=== PATIENT | female | born 1965 | race Caucasian/White ===

== ENCOUNTER 2020-02-10 11:09 | Emergency (ER) | payer OTHER, SELFPAY ==
--- NOTE | ~2020-02-10 | XR_ITS ---
EXAMINATION: [id number] DATE: 02/10/2020 11:49 INDICATION: Low anterior chest pain. TECHNIQUE: A frontal view of the chest and 3 views of the left ribs were obtained. COMPARISON: Chest 2 views 03/22/2013 FINDINGS: The chest demonstrates clear lungs without pneumonia, pleural effusion, or pneumothorax. Th e heart size is normal. IMPRESSION: 1. No rib fracture. Reviewed, dictated and finalized at location A. IMPRESSION: 1. No rib fracture.
[2020-02-10 11:27] VITALS: BP 121/73; PULSE 89; RESP 16; TEMP 36.4; O2SAT 99
--- NOTE | 2020-02-10 11:27 | ED.ABDPAIN ---
HPI - Abdominal Pain General Chief Complaint: Unspecified Stated Complaint: pain left side mid section Time Seen by Provider: 02/10/20 11:30 Source: patient and RN notes reviewed Mode of arrival: ambulatory Limitations: no limitations History of Present Illness HPI narrative: 54-year-old female presents with concern for left lateral chest/rib pain. Reports pain started yesterday. Reports the day before the pain began she was doing a lot of lifting overhead. Reports while she was lifting she felt a sharp pain on her left side, however went away. She reports she is a smoker, has been coughing frequently. She denies shortness of breath, fever, malaise, chills, sweats, rhinorrhea, nasal congestion. Denies bruising, redness. Reports she is been taking Aleve and using icy hot. Patient reports pain is reproducible, worse when coughing movements. Reports when she raises her arms high above her head pain exacerbates MD elicited complaint: other (Left rib pain) Related Data Home Medications Medication Instructions Recorded Confirmed ergocalciferol (vitamin D2) 1,250 mcg PO WEEKLY 05/24/19 02/10/20 [Vitamin D2] insulin glargine [Basaglar KwikPen 75 unit SUBCUT DAILY 05/24/19 02/10/20 U-100 Insulin] omeprazole 20 mg PO BID 05/24/19 02/10/20 pravastatin 20 mg PO DAILY 05/24/19 02/10/20 sulindac 150 mg PO BID 05/24/19 02/10/20 tizanidine 2 mg PO TID PRN 05/24/19 02/10/20 ursodiol 300 mg PO BID 05/24/19 02/10/20 Allergies Allergy/AdvReac Type Severity Reaction Status Date / Time levofloxacin Allergy Unknown RASH Verified 02/10/20 11:35 Review of Systems Review of Systems: Narrative: CONSTITUTIONAL: Denies malaise, chills, sweats, or fever. ENT: Denies rhinorrhea, congestion, sinus pain, otalgia or sore throat. CARDIOVASCULAR: Denies chest pain, palpitations, or edema. RESPIRATORY: Reports cough. Denies dyspnea. GASTROINTESTINAL: Denies abdominal pain, nausea, vomiting, diarrhea GENITOURINARY: Denies dysuria or hematuria. SKIN: Denies bruising, rash MUSCULOSKELETAL: Reports left lateral rib/chest wall pain near ribs 8, 9, 10 laterally NEUROLOGIC: Denies numbness, weakness All systems reviewed & are unremarkable except as noted in HPI and below PMFSH Social History Social History Social History: used to smoke1-2pack; now is cutting down to about 8/day Smoking status: Current every day smoker Comments At time of signature, agree with nursing past medical, surgical, social and family history. There is no relevant family history pertinent to the presenting complaint Exam Narrative: Exam Narrative: GENERAL: Well-appearing, well-nourished, and in no acute distress. HEAD: Normocephalic EYES: PERRLA, conjunctivae clear ENT: Mucous membranes moist. NECK: Supple. CHEST: No respiratory distress. Clear to auscultation. No bony deformities, no asymmetry. Speaks in full sentences. HEART: Regular rate and rhythm. No murmur heard. ABDOMEN: Soft, nontender, nondistended, normal active bowel sounds, no palpable masses. EXTREMITIES: Grossly normal range of motion. SKIN: Warm, dry, no rash. No erythema, ecchymosis, edema noted to the left lateral chest, mild tenderness to palpation noted 7, 8, 9 NEURO: Alert and oriented x3. PSYCH: Normal mood and affect Course Course Emergency Course: Patient is aware of diagnosis, understands and agrees to treatment plan. Anticipatory guidance given. Patient agrees to follow-up as directed and is aware of reasons to seek care at the emergency department. Portions of this record may have been created with voice recognition software Vital Signs Vital signs: Vital Signs Temperature 97.5 F L 02/10/20 11:27 Pulse Rate 89 02/10/20 11:27 Respiratory Rate 16 02/10/20 11:27 Blood Pressure 121/73 02/10/20 11:27 Pulse Oximetry 99 02/10/20 11:27 Temperature 97.5 F L 02/10/20 11:27 Pulse Rate 89 02/10/20 11:27 R
== END 2020-02-10 12:13 | disposition home or self-care (01) ==
PROVIDERS: Emergency Provider Nurse Practitioner; PCP Internal Medicine
DX: R07.89 Other chest pain (principal); F17.290 Nicotine dependence, other tobacco product, uncomplicated; E11.42 Type 2 diabetes mellitus with diabetic polyneuropathy; Z79.4 Long term (current) use of insulin
CPT/HCPCS: 71101; 99213; G0463

== ENCOUNTER 2020-08-02 11:44 | Emergency (ER) | payer OTHER, SELFPAY ==
--- NOTE | ~2020-08-02 | XR_ITS ---
EXAMINATION: XR chest 2V DATE: 08/02/2020 12:38 INDICATION: Cough. TECHNIQUE: Frontal and lateral views of the chest were obtained. COMPARISON: Chest 2 views 02/19/2013 FINDINGS: The chest demonstrates clear lungs without pneumonia, pleural effusion, or pneumothorax. Th e heart size is normal. There is mild chronic anterior wedging of multiple lower thoracic vertebral b odies. IMPRESSION: 1. No acute cardiopulmonary disease. Reviewed, dictated and finalized at location A.
--- NOTE | 2020-08-02 11:48 | ED.GENADULT ---
HPI - General Adult General Chief complaint: Upper Respiratory Infection Stated complaint: lower back pain Time Seen by Provider: 08/02/20 11:50 Source: patient Mode of arrival: ambulatory Limitations: no limitations History of Present Illness HPI narrative: 55-year-old female patient presents to the [facility] with complaints of urinary tract infection symptoms. Patient states that for about 4 days she has had frequency, urgency as well as burning pain with urination. Patient states her urine does look a little cloudy and also reports some low back pain. Denies fevers, body aches or chills. Denies any nausea, vomiting or diarrhea. Patient states she has been taking some [id number] AZO for her symptoms which has helped her pain a little bit. Patient also reports that she is had a cough recently and does have a little bit of shortness of breath with the cough at times. Patient is an active smoker. Denies any fevers. Denies any chest pain currently. Patient states she has not received the Covid vaccine yet and denies being around anybody with Covid positive symptoms that she is aware of. Related Data Home Medications Medication Instructions Recorded Confirmed ergocalciferol (vitamin D2) 1,250 mcg PO WEEKLY 05/24/19 08/02/20 [Vitamin D2] insulin glargine [Basaglar KwikPen 75 unit SUBCUT DAILY 05/24/19 08/02/20 U-100 Insulin] omeprazole 20 mg PO BID 05/24/19 08/02/20 pravastatin 20 mg PO DAILY 05/24/19 08/02/20 tizanidine 2 mg PO TID PRN 05/24/19 08/02/20 ursodiol 300 mg PO BID 05/24/19 08/02/20 Allergies Allergy/AdvReac Type Severity Reaction Status Date / Time levofloxacin Allergy Unknown RASH Verified 08/02/20 12:07 Review of Systems Review of Systems: Narrative: CONSTITUTIONAL: Denies fever, chills, or sweats. EYES: Denies visual changes, redness, or discharge. ENT: Denies rhinorrhea, congestion, sore throat, or otalgia. CARDIOVASCULAR: Denies chest pain, palpitations, or edema. RESPIRATORY: Positive cough with slight dyspnea x3 days. GASTROINTESTINAL: Denies abdominal pain, nausea, vomiting, or diarrhea. GENITOURINARY: Denies dysuria or hematuria. Pain with urination, urgency and frequency x4 days SKIN: Denies rash or itching. MUSCULOSKELETAL: Denies back pain, joint pain, or myalgia. NEUROLOGIC: Denies headache, numbness, or weakness. PSYCHIATRIC: Denies anxiety or depression. FOR[facility]LY [facility] Past Medical History Medical History (Updated 08/02/20 @ 12:55 by RENA Mcleod) Autoimmune liver disease Depression Diabetes mellitus, type II HLD (hyperlipidemia) Peripheral neuropathy Sleep apnea Social History Social History Social History: used to smoke1-ack; now is cutting down to about 8/day Smoking status: Current every day smoker Comments At the time of my signature I agree with nursing past medical history, surgical, social, and family history. There is no relevant family history pertinent to the presenting complaint. Exam Narrative: Exam Narrative: GENERAL: Well-appearing, well-nourished, and in no acute distress. HEAD: Normocephalic, atraumatic. EYES: PERRLA and EOMI. ENT: Nares clear, no rhinorrhea or epistaxis. Mucous membranes moist. NECK: Supple. No lymphadenopathy CHEST: No respiratory distress. Patient has decreased lung sounds noted to bilateral lower lobes on auscultation. Patient able talk clear complete sentences. No tripoding noted. HEART: Regular rate and rhythm. No murmur heard. Normal peripheral pulses. ABDOMEN: Soft, nontender, nondistended, normal active bowel sounds. EXTREMITIES: Normal range of motion. No edema. SKIN: Warm, dry, no rash. NEURO: No focal deficits. Alert and oriented x3. Course Reevaluation(s) Reevaluation #1: Reevaluated patient after x-rays have resulted. Notified her that the x-ray does not show any evidence of pneumonia however given her decreased lung sounds on auscultation we will go
[2020-08-02 11:50] VITALS: BP 115/90; PULSE 107; RESP 20; TEMP 36.7; O2SAT 96
[2020-08-03 12:59] LABS: SARS-CoV-2 RNA PCR Negative
== END 2020-08-02 13:11 | disposition home or self-care (01) ==
PROVIDERS: Emergency Provider Nurse Practitioner Family; PCP Internal Medicine
DX: N30.00 Acute cystitis without hematuria (principal); J40 Bronchitis, not specified as acute or chronic; Z20.822 Contact with and (suspected) exposure to COVID-19; K76.9 Liver disease, unspecified; E78.5 Hyperlipidemia, unspecified; E11.42 Type 2 diabetes mellitus with diabetic polyneuropathy; G47.30 Sleep apnea, unspecified; F17.200 Nicotine dependence, unspecified, uncomplicated
CPT/HCPCS: 71046; 81003; 87077; 87086; 87088; 87186; 99213; C9803; G0463; U0003; U0005

== ENCOUNTER 2020-11-25 12:03 | Emergency (ER) | payer OTHER, SELFPAY ==
--- NOTE | 2020-11-25 12:11 | ED.LOWEXIN ---
HPI - Extremity Injury (Lower) General Chief Complaint: Extremity Injury, Lower Stated Complaint: knee pain Time Seen by Provider: 11/25/20 12:12 Source: patient and RN notes reviewed History of Present Illness HPI Narrative: Patient is a 55-year-old female who presents the urgent care with complaints of bilateral leg pain radiating from the calf to the knees. Patient states that she has chronic neuropathy and has been taking her gabapentin as prescribed, once daily. Patient denies of any known injury or falls. States that she is been also taking ibuprofen without much improvement of the pain. States that the pains worsen throughout the day and she has been unable to sleep. Patient states her gabapentin in the morning. No other complaints. No acute distress noted. Patient aware of the plan of care. Some parts of this dictation were generated by voice recognition software and may contain typographical and/or grammatical inaccuracies. Related Data Home Medications Medication Instructions Recorded Confirmed gabapentin 300 mg PO DAILY 11/25/20 11/25/20 insulin glargine [Basaglar KwikPen 10 unit SUBCUT QPM 11/25/20 11/25/20 U-100 Insulin] metformin 500 mg PO DAILY 11/25/20 11/25/20 pravastatin 20 mg PO DAILY 11/25/20 11/25/20 ursodiol 300 mg PO BID 11/25/20 11/25/20 Allergies Allergy/AdvReac Type Severity Reaction Status Date / Time levofloxacin [From Levaquin] Allergy Rash Verified 11/25/20 12:19 Review of Systems Review of Systems: Narrative: CONSTITUTIONAL: Denies fever, chills, or sweats. EYES: Denies visual changes, redness, or discharge. ENT: Denies rhinorrhea, congestion, sore throat, or otalgia. CARDIOVASCULAR: Denies chest pain, palpitations, or edema. RESPIRATORY: Denies cough or dyspnea. GASTROINTESTINAL: Denies abdominal pain, nausea, vomiting, or diarrhea. GENITOURINARY: Denies dysuria or hematuria. SKIN: Denies rash or itching. MUSCULOSKELETAL: Reports of lateral lower leg pains NEUROLOGIC: Denies headache, numbness, or weakness. nted in HPI. PMFSH Comments At the time of my signature, I reviewed and agree with the nursing past medical, surgical, social, and family history. There is no relevant family history pertinent to the patient complaint. Exam Narrative: Exam Narrative: GENERAL: This is a well-nourished, well-developed patient, in no apparent distress. HEAD: normocephalic, atraumatic. EYES: PERRL. Sclera clear/white. Vision is grossly intact. EARS: External ears normal NOSE: External nose normal with no obvious nasal discharge, nares without redness, no rhinorrhea. THROAT: Mucous membranes moist NECK: Neck supple CARDIOVASCULAR: Regular rate and rhythm without murmurs, gallops, or rubs. RESPIRATORY: Clear to auscultation. Breath sounds equal bilaterally. No wheezes, rales, or rhonchi. SKIN: warm, intact with no suspicious lesions or rash, good texture and turgor. NEURO: awake, alert, and oriented to person, place and time. There were no obvious focal neurologic abnormalities. EXTREMITIES: No clubbing, cyanosis, or edema. No joint tenderness, effusion, or edema noted. No calf tenderness. Negative Homans sign bilaterally. Strong bilateral pedal pulses Course Vital Signs Vital signs: Vital Signs Temperature 98.3 F 11/25/20 12:12 Pulse Rate 110 H 11/25/20 12:12 Respiratory Rate 16 11/25/20 12:12 Blood Pressure 101/82 11/25/20 12:12 Pulse Oximetry 97 11/25/20 12:12 Temperature 98.3 F 11/25/20 12:21 Pulse Rate 110 H 11/25/20 12:21 Respiratory Rate 16 11/25/20 12:21 Blood Pressure 101/82 11/25/20 12:21 Pulse Oximetry 97 11/25/20 12:21 Reviewed MDM - Extremity Injury (Lower) MDM Narrative Medical decision making narrative: Spoke to the patient regarding her chronic neuropathy and that is likely she needs to increase her gabapentin. Patient should speak to her primary care doctor regarding an increase, twice a day, of her gabapentin. Prior to taking the me
[2020-11-25 12:12] VITALS: BP 101/82; PULSE 110; RESP 16; TEMP 36.8; O2SAT 97
[2020-11-25 12:21] VITALS: BP 101/82; PULSE 110; RESP 16; TEMP 36.8; O2SAT 97
== END 2020-11-25 12:24 | disposition home or self-care (01) ==
PROVIDERS: Emergency Provider Nurse Practitioner Family; PCP Internal Medicine
DX: G89.29 Other chronic pain (principal); E11.42 Type 2 diabetes mellitus with diabetic polyneuropathy; E78.00 Pure hypercholesterolemia, unspecified; F32.9 Major depressive disorder, single episode, unspecified; K75.4 Autoimmune hepatitis
CPT/HCPCS: 99211; G0463

== ENCOUNTER 2022-06-25 13:57 | Emergency (ER) | payer OTHER, SELFPAY ==
[2022-06-25 14:06] VITALS: BP 105/76; PULSE 114; RESP 18; TEMP 36.4; O2SAT 98
--- NOTE | 2022-06-25 14:16 | ED.EYEPROB ---
HPI - Eye Problem General Chief complaint: Eye Problems Stated complaint: Right Eye Pain Time Seen by Provider: 06/25/22 14:16 Source: patient Mode of arrival: ambulatory Limitations: no limitations History of Present Illness HPI Narrative: 57-year-old female with a history of diabetes presented for c/o irritation to right eye for about 5 days. Endorses itching and noticed a red bump to the lower right lid. States she noticed a white lump on the inside of the lower lid today. She has been applying warm compresses to the site without significant change. Denies pain, photophobia, vision changes. Denies trauma or FB. MD chief complaint: eye pain Related Data Home Medications Medication Instructions Recorded Confirmed insulin glargine 100 unit/mL (3 75 unit subcut DAILY 05/24/19 08/02/20 mL) subcutaneous pen (Basaglar KwikPen U-100 Insulin) omeprazole 20 mg tablet,delayed 20 mg PO BID 05/24/19 08/02/20 release pravastatin 20 mg tablet 20 mg PO DAILY 05/24/19 08/02/20 tizanidine 2 mg capsule 2 mg PO TID PRN pain 05/24/19 08/02/20 ursodiol 300 mg capsule 300 mg PO BID 05/24/19 08/02/20 gabapentin 300 mg tablet 300 mg PO DAILY 11/25/20 11/25/20 insulin glargine 100 unit/mL (3 10 unit subcut QPM 11/25/20 11/25/20 mL) subcutaneous pen (Basaglar KwikPen U-100 Insulin) metformin 500 mg tablet 500 mg PO DAILY 11/25/20 11/25/20 fluticasone 250 mcg-salmeterol 50 inhalation 06/25/22 mcg/dose blistr powdr for inhalation (Advair Diskus) Allergies Allergy/AdvReac Type Severity Reaction Status Date / Time levofloxacin Allergy Unknown RASH Verified 06/25/22 14:03 Review of Systems Review of Systems: CONSTITUTIONAL: Denies body aches, fever, chills EYES: per HPI ENT: Denies rhinorrhea, congestion, sore throat, or otalgia. CARDIOVASCULAR: Denies chest pain, palpitations RESPIRATORY: Denies cough or dyspnea. GASTROINTESTINAL: Denies abdominal pain, nausea, vomiting, or diarrhea. SKIN: Denies rash, itching, or wounds. MUSCULOSKELETAL: Denies back pain, joint pain, or myalgia. NEUROLOGIC: Denies headache, numbness, tingling, or weakness. All systems reviewed & are unremarkable except as noted in HPI and below PMFSH Past Medical History Medical History Autoimmune liver disease Depression Diabetes mellitus, type II HLD (hyperlipidemia) Peripheral neuropathy Sleep apnea Social History Social History Social History: used to smoke1-2pack; now is cutting down to about 8/day Smoking status: Current every day smoker Comments At time of signature, I have reviewed and agree with nursing past medical, surgical, social and family history unless otherwise noted. Please see nursing chart for further information. There is no relevant family history pertinent to the presenting complaint Exam Narrative: GENERAL: Well-appearing EYES: Lid eversion shows approx 0.5cm internal hordeolum to right lower lid with erythema. Also lower lid with external hordeolum noted; minimal swelling. No conjunctival injection or drainage; PERRLA EOMI. ENT: Mucous membranes pink and moist. No rhinorrhea. CHEST: Clear to auscultation. HEART: Regular rate and rhythm. ABDOMEN: Soft, nontender, nondistended SKIN: Warm, dry, no rash. Normal skin turgor. Course Course Emergency Course: Patient is aware of diagnosis, understands and agrees to treatment plan. Anticipatory guidance given. Patient agrees to follow-up as directed and is aware of reasons to seek care at the emergency department. Portions of this record may have been created with voice recognition software Level of Care: Express Care Visit Vital Signs Vital signs: Vital Signs Temperature 97.5 F L 06/25/22 14:06 Pulse Rate 114 H 06/25/22 14:06 Respiratory Rate 18 06/25/22 14:06 Blood Pressure 105/76 06/25/22 14:06 Pulse Oximetry 98 02/0
== END 2022-06-25 14:36 | disposition home or self-care (01) ==
PROVIDERS: Emergency Provider Nurse Practitioner Family
DX: H00.022 Hordeolum internum right lower eyelid (principal); H00.012 Hordeolum externum right lower eyelid; E78.5 Hyperlipidemia, unspecified; E11.9 Type 2 diabetes mellitus without complications; F17.200 Nicotine dependence, unspecified, uncomplicated
CPT/HCPCS: 99213; G0463

== ENCOUNTER 2023-03-14 09:03 | Outpatient (CLI) | payer OTHER, SELFPAY ==
--- NOTE | ~2023-03-14 | US_ITS ---
EXAMINATION: US thyroid DATE: 03/14/2023 10:17 INDICATION: Localized swelling, mass and lump. TECHNIQUE: Multiple ultrasound images of the thyroid were obtained. COMPARISON: None. FINDINGS: The right thyroid lobe measures 7.0 x 2.3 x 2.5 cm. The left thyroid lobe measures 6.2 x 2.0 x 2.6 c m. There are multiple nodules in the thyroid. In the right thyroid lobe, there is a 2.7 cm predomina ntly solid, hypoechoic, wider than tall nodule with smooth margin without echogenic foci (TI-RADS TR4 ). In the right thyroid lobe, there is a 2.1 cm solid, hypoechoic, wider than tall nodule with smooth margin without echogenic foci (TR4). In the left thyroid lobe, there is a 2.2 cm predominantly solid , hypoechoic, wider than tall nodule with smooth margin without echogenic foci (TR4). IMPRESSION: 1. Multinodular goiter. Ultrasound-guided fine-needle aspiration of 2 nodules is recommended. Reviewed, dictated and finalized at location E. IMPRESSION: 1. Multinodular goiter. Ultrasound-guided fine-needle aspiration of 2 nodules i s recommended.
== END 2023-03-14 09:04 | disposition home or self-care (01) ==
PROVIDERS: PCP Internal Medicine; Visit Provider Internal Medicine
DX: E04.2 Nontoxic multinodular goiter (principal); R22.1 Localized swelling, mass and lump, neck
CPT/HCPCS: 76536

== ENCOUNTER 2023-04-25 18:30 | Emergency (ER) | payer OTHER, SELFPAY ==
[2023-04-25 18:37] VITALS: BP 100/73; PULSE 117; RESP 16; TEMP 36.6; O2SAT 100
[2023-04-25 18:40] VITALS: BP 100/73; PULSE 117; RESP 16; TEMP 36.6; O2SAT 100
--- NOTE | 2023-04-25 18:47 | ED.GENADULT ---
HPI - General Adult General Chief complaint: Unspecified Stated complaint: Low Blood Pressure Time Seen by Provider: 04/25/23 18:50 Mode of arrival: ambulatory Limitations: no limitations History of Present Illness HPI narrative: 57-year-old female with history of diabetes presents with concern for low blood pressure. She reports she was at [facility] and felt lightheaded so she took her blood pressure and it was 87/62. She reports she has been feeling dizzy and more thirsty for the last 3 days. She denies fever, body aches, chills, sweats, abdominal pain, nasal congestion, rhinorrhea, sore throat, headache. She denies dysuria, frequency, urgency. Reports her urine is darker than usual. She has not taken any new medications or had any changes in her medications recently MD complaint: Low blood pressure Related Data Home Medications Medication Instructions Recorded Confirmed insulin glargine 100 unit/mL (3 75 unit subcut DAILY 05/24/19 04/25/23 mL) subcutaneous pen (Basaglar KwikPen U-100 Insulin) omeprazole 20 mg tablet,delayed 20 mg PO BID 05/24/19 04/25/23 release pravastatin 20 mg tablet 20 mg PO DAILY 05/24/19 04/25/23 tizanidine 2 mg capsule 2 mg PO TID PRN pain 05/24/19 04/25/23 ursodiol 300 mg capsule 300 mg PO BID 05/24/19 04/25/23 gabapentin 300 mg tablet 300 mg PO DAILY 11/25/20 04/25/23 insulin glargine 100 unit/mL (3 10 unit subcut QPM 11/25/20 04/25/23 mL) subcutaneous pen (Basaglar KwikPen U-100 Insulin) metformin 500 mg tablet 500 mg PO DAILY 11/25/20 04/25/23 fluticasone 250 mcg-salmeterol 50 1 inh inhalation DIRECTED 06/25/22 04/25/23 mcg/dose blistr powdr for inhalation (Advair Diskus) Allergies Allergy/AdvReac Type Severity Reaction Status Date / Time levofloxacin Allergy Unknown RASH Verified 06/25/22 14:03 Review of Systems Review of Systems: CONSTITUTIONAL: Denies malaise, chills, sweats, or fever. EYES: Denies visual changes ENT: Denies rhinorrhea, congestion, sinus pain, otalgia or sore throat. CARDIOVASCULAR: Denies chest pain, palpitations, or edema. RESPIRATORY: Denies cough or dyspnea. GASTROINTESTINAL: Denies abdominal pain, nausea, vomiting, diarrhea GENITOURINARY: Denies dysuria or hematuria. Reports dark colored urine SKIN: Denies rash or itching. MUSCULOSKELETAL: Denies back pain, joint pain, or myalgia. NEUROLOGIC: Denies numbness, weakness, or headache. Reports lightheadedness All systems reviewed & are unremarkable except as noted in HPI and below PMFSH Past Medical History Medical History (Updated 04/25/23 @ 19:13 by Britni Donahue NP) Autoimmune liver disease Depression Diabetes mellitus, type II HLD (hyperlipidemia) Peripheral neuropathy Sleep apnea Social History Social History Social History: used to smoke1-2pack; now is cutting down to about 8/day Smoking status: Current every day smoker Comments At time of signature, agree with nursing past medical, surgical, social and family history. There is no relevant family history pertinent to the presenting complaint Exam Narrative: GENERAL: Well-appearing, well-nourished, and in no acute distress. HEAD: Normocephalic, atraumatic. EYES: PERRLA, sclera clear, and EOMI. No nystagmus. ENT: Nares clear, turbinates pink, no rhinorrhea or epistaxis. Mucous membranes moist. TM pearly mace with sharp light reflex bilaterally; no tragal tenderness. Oropharynx without erythema or lesions. Tonsils not enlarged and without exudate. NECK: Supple. No lymphadenopathy. Carotids were easily palpable bilaterally. CHEST: No respiratory distress. Clear to auscultation. No bony deformities, no asymmetry. Speaks in full sentences. HEART: Regular rate and rhythm. No murmur heard. Normal peripheral pulses. ABDOMEN: Soft, nontender, nondistended, normal active bowel sounds. Bilateral CVA tenderness EXTREMITIES: Normal range of motion. No edema. Normal str
[2023-04-25 18:49] LABS: Glucose Point of Care 128 mg/dl (65-105)
[2023-04-25 18:54] VITALS: BP 98/78
== END 2023-04-25 19:23 | disposition home or self-care (01) ==
PROVIDERS: Emergency Provider Nurse Practitioner; PCP Internal Medicine
DX: N39.0 Urinary tract infection, site not specified (principal); E11.42 Type 2 diabetes mellitus with diabetic polyneuropathy; Z79.4 Long term (current) use of insulin; Z79.84 Long term (current) use of oral hypoglycemic drugs; E78.5 Hyperlipidemia, unspecified; K76.9 Liver disease, unspecified
CPT/HCPCS: 81003; 82948; 87086; 87147; 87181; 87186; 99213; G0463

== ENCOUNTER → 2023-12-26 12:50 | Outpatient (CLI) | payer OTHER, SELFPAY ==
--- NOTE | ~2023-12-26 | XR_ITS ---
3 VIEWS LUMBAR SPINE Ordering provider: Irma Abreu, History: . PAIN X 4 YEARS ON LEFT LOWER BACK . Comparison: January 25, 2011 FINDINGS: VERTEBRAL BODIES: No visible fracture or subluxation. DISK SPACES: Normal. SOFT TISSUES: Vascular calcification. IMPRESSION: No acute osseous abnormality lumbar spine. Reviewed, dictated and finalized at location A.
== END ==
PROVIDERS: PCP Internal Medicine; Visit Provider Internal Medicine
DX: M54.50 Low back pain, unspecified (principal)
CPT/HCPCS: 72100

== ENCOUNTER 2024-04-26 13:35 | Outpatient (CLI) | payer OTHER, SELFPAY ==
--- NOTE | ~2024-04-26 | XR_ITS ---
3 VIEWS LUMBAR SPINE Ordering provider: Irma Abreu, History: . MID LOW BACK PAIN AFTER POP YESTERDAY . Comparison: December 26, 2023 FINDINGS: VERTEBRAL BODIES: No visible fracture or subluxation. Severe bending of the coccyx. DISK SPACES: Slight narrowing of the disc L5-S1. SOFT TISSUES: Atherosclerotic changes of the aorta. IMPRESSION: No acute osseous abnormality lumbar spine. No significant change from previous examination. Reviewed, dictated and finalized at location A. PRINTER
== END 2024-04-26 13:36 | disposition home or self-care (01) ==
PROVIDERS: PCP Internal Medicine; Visit Provider Internal Medicine
DX: M54.50 Low back pain, unspecified (principal); M54.10 Radiculopathy, site unspecified
CPT/HCPCS: 72100